=== PATIENT | female | born 1975 | race Caucasian/White ===

== ENCOUNTER 2018-03-21 06:19 | Day surgery (SDC) | payer OTHER ==
[~2018-03-21 06:19] MED LIST: CEFAZOLIN 2 GM/50 ML (PMX) 50 ML IVPB; SOD CHLORIDE 0.9% 1,000 ML IV
[2018-03-21 06:55] LABS: ADD MAN DIFF? NO
[2018-03-21 06:57] LABS: WHITE BLOOD COUNT 11.6 10^3/ul (4.8-10.8)
[2018-03-21 06:57] LABS: BASOPHIL # 0.1 10^3/ul (0.0-0.1); BASOPHILS % 0.4 % (0.0-2.0); EOSINOPHILS # 0.4 10^3/ul (0.0-0.5); EOSINOPHILS % 3.8 % (0.0-7.0); HEMATOCRIT 36.1 % (37.0-47.0); HEMOGLOBIN 11.6 g/dl (12.0-16.0); LYMPHOCYTES # 2.2 10^3/ul (0.8-2.9); LYMPHOCYTES % 19.1 % (15.0-51.0); MEAN CORPUSCULAR HEMOGLOBIN 24.1 pg (29.0-33.0); MEAN CORPUSCULAR HGB CONC 32.1 g/dl (32.0-37.0); MEAN CORPUSCULAR VOLUME 75.1 fl (82.0-101.0); MEAN PLATELET VOLUME 9.3 fl (7.4-10.4); MONOCYTES % 8.3 % (0.0-11.0); NEUTROPHIL # 7.9 10^3/ul (1.6-7.5); NEUTROPHILS % 67.9 % (39.0-77.0); PLATELET COUNT 355 10^3/UL (140-415); RED BLOOD COUNT 4.81 10^6/ul (4.20-5.40); RED CELL DISTRIBUTION WIDTH 16.1 % (11.5-14.5)
[2018-03-21] MEDS ORDERED: LIDOCAINE 2% (SDV) 5 ML INJ (07:00)
[2018-03-21 07:17] LABS: ALANINE AMINOTRANSFERASE 35 IU/L (13-69); ALBUMIN 4.5 g/dl (3.3-4.9); ALBUMIN/GLOBULIN RATIO 1.21; ALKALINE PHOSPHATASE 100 IU/L (42-121); ANION GAP 12 (8-16); ASPARTATE AMINO TRANSFERASE 28 IU/L (15-46); BILIRUBIN,INDIRECT 0.3 mg/dl (0-1.1); BILIRUBIN,TOTAL 0.3 mg/dl (0.2-1.3); BLOOD UREA NITROGEN 7 mg/dl (7-20); CARBON DIOXIDE 24 mmol/L (21-31); CHLORIDE 109 mmol/L (97-110); CREATININE 0.53 mg/dl (0.44-1.00); GLUCOSE 99 mg/dl (70-220); INR 0.97; POTASSIUM 3.9 mmol/L (3.5-5.1); SODIUM 141 mmol/L (135-144); TOTAL PROTEIN 8.2 g/dl (6.1-8.1)
[2018-03-21] MEDS ORDERED: POLYMYXIN/BACITRACIN 1L IRRIG (07:39)
[2018-03-21] MEDS ORDERED: PROPOFOL 100 ML (07:50)
[2018-03-21] MEDS ORDERED: ROCURONIUM 50 MG INJ ×2 (07:58)
[2018-03-21] MEDS ORDERED: DEXAMETHASONE 4 MG/ML 1 ML INJ (08:28)
[2018-03-21] MEDS ORDERED: ONDANSETRON 4 MG INJ (08:30)
[2018-03-21] MEDS: BUPIVACAINE 0.25% (MPF) 30 ML INJ (08:31)
[2018-03-21] MEDS: POLYMYXIN/BACITRACIN 1L IRRIG IRR ×2 (08:31)
[2018-03-21] MEDS ORDERED: SUGAMMADEX SODIUM 200 MG/2 ML VIAL IV (08:45)
[2018-03-21] MEDS ORDERED: CEFAZOLIN 1 GM INJ (08:51)
[2018-03-21] MEDS ORDERED: ACETAMINOPHEN 1000MG/100ML IV 100 ML (08:51)
[2018-03-21] MEDS ORDERED: hydrALAzine 20 MG INJ IV (09:00)
[2018-03-21] MEDS ORDERED: FENTAnyl 50 MCG/ML VIAL IV ×3 (09:00)
[2018-03-21] MEDS ORDERED: LABETALOL HCL 20MG INJ IV (09:00)
[2018-03-21] MEDS ORDERED: MEPERIDINE 25 MG INJ IV (09:00)
[2018-03-21] MEDS ORDERED: HYDROCODONE/APAP (5/325) TAB PO (09:00)
[2018-03-21] MEDS ORDERED: ALBUTEROL 0.083% (NEB) 2.5 MG/3 ML AMP HHN (09:00)
[2018-03-21] MEDS ORDERED: OXYCODONE/ACETAMINOPHEN (5/325) TAB PO (09:00)
[2018-03-21] MEDS ORDERED: ONDANSETRON 4 MG INJ IV (09:00)
[2018-03-21] MEDS ORDERED: HYDROmorphONE 1 MG/5 ML IV SYRINGE IV ×2 (09:00)
[2018-03-21] MEDS ORDERED: DIPHENHYDRAMINE 50 MG INJ IV (09:00)
[2018-03-21] MEDS ORDERED: EPHEDrine SULFATE 50 MG/5 ML SYG IV (09:00)
[2018-03-21] MEDS ORDERED: KETOROLAC 30 MG INJ IV (09:00)
[2018-03-21] MEDS ORDERED: METOCLOPRAMIDE 10 MG INJ IV (09:00)
[2018-03-21] MEDS: HYDROmorphONE 1 MG/5 ML IV SYRINGE IV (09:10)
[2018-03-21] MEDS: OXYCODONE/ACETAMINOPHEN (5/325) TAB PO (09:34)
== END 2018-03-21 10:30 | disposition home or self-care (01) ==
LOC: SDS 06:19
DX: K40.30 Unilateral inguinal hernia, with obstruction, without gangrene, not specified as recurrent (principal)
CPT/HCPCS: 49507; 80053; 84703; 85025; 85610; 85730

== ENCOUNTER 2018-08-14 08:26 | Observation (INO) | payer OTHER ==
[2018-08-14] MEDS: CEFAZOLIN 1 GM/50 ML (PMX) 50 ML IVPB (08:00)
[~2018-08-14 08:26] MED LIST changes: -CEFAZOLIN 2 GM/50 ML (PMX) 50 ML IVPB
[2018-08-14 12:51] LABS: ALANINE AMINOTRANSFERASE 45 IU/L (13-69); ALBUMIN 4.6 g/dl (3.3-4.9); ALBUMIN/GLOBULIN RATIO 1.27; ALKALINE PHOSPHATASE 82 IU/L (42-121); ANION GAP 11 (5-13); ASPARTATE AMINO TRANSFERASE 46 IU/L (15-46); BILIRUBIN,INDIRECT 0.6 mg/dl (0-1.1); BILIRUBIN,TOTAL 0.6 mg/dl (0.2-1.3); CALCIUM 9.3 mg/dl (8.4-10.2); CARBON DIOXIDE 25 mmol/L (21-31); CHLORIDE 108 mmol/L (97-110); CREATININE 0.44 mg/dl (0.44-1.00); Estimated GFR > 60 mL/min (>60); GLUCOSE 90 mg/dl (70-220); POTASSIUM 3.9 mmol/L (3.5-5.1); SODIUM 144 mmol/L (135-144); TOTAL PROTEIN 8.2 g/dl (6.1-8.1)
[2018-08-14 13:01] LABS: BLOOD UREA NITROGEN 3 mg/dl (7-20)
[2018-08-14] MEDS ORDERED: LIDOCAINE 2% (SDV) 5 ML INJ (13:41)
[2018-08-14] MEDS ORDERED: PROPOFOL 20 ML (13:41)
[2018-08-14] MEDS ORDERED: FENTAnyl 50 MCG/ML VIAL ×2 (13:41→14:37)
[2018-08-14] MEDS ORDERED: MIDAZOLAM 1 MG/ML 2 ML INJ (13:41)
[2018-08-14] MEDS ORDERED: PHENYLephrine (100 MCG/ML) 5ML SYG (13:57)
[2018-08-14] MEDS ORDERED: DEXAMETHASONE 4 MG/ML 1 ML INJ (13:58)
[2018-08-14] MEDS ORDERED: FAMOTIDINE 20 MG INJ (13:58)
[2018-08-14] MEDS ORDERED: ONDANSETRON 4 MG INJ (13:58)
[2018-08-14] MEDS: ISOSULFAN BLUE 1% 5 ML INJ SC (13:59)
[2018-08-14] MEDS ORDERED: PROCHLORPERAZINE 10 MG INJ IV (14:00)
[2018-08-14] MEDS ORDERED: MEPERIDINE 25 MG INJ IV (14:00)
[2018-08-14] MEDS ORDERED: DIPHENHYDRAMINE 50 MG INJ IV (14:00)
[2018-08-14] MEDS ORDERED: OXYCODONE/ACETAMINOPHEN (5/325) TAB PO (14:00)
[2018-08-14] MEDS ORDERED: FENTAnyl 50 MCG/ML VIAL IV ×3 (14:00)
[2018-08-14] MEDS ORDERED: CEFAZOLIN 1 GM INJ (14:00)
[2018-08-14] MEDS ORDERED: HYDROmorphONE 1 MG/5 ML IV SYRINGE IV ×2 (14:00)
[2018-08-14] MEDS ORDERED: EPHEDrine SULFATE 50 MG/5 ML SYG (14:30)
[2018-08-14] MEDS ORDERED: ACETAMINOPHEN 1000MG/100ML IV 100 ML IVPB (15:30)
[2018-08-14] MEDS: HYDROmorphONE 1 MG/5 ML IV SYRINGE IV (17:25)
[2018-08-14] MEDS: ONDANSETRON 4 MG INJ IV ×2 (17:25→21:33)
[2018-08-14] MEDS: D5W-0.45 NACL + KCL 20 MEQ 1,000 ML IV ×2 (21:32→23:15)
[2018-08-14] MEDS: morphine 2 MG INJ IV (21:44)
[2018-08-15] MEDS: ONDANSETRON 4 MG INJ IV (06:41)
[2018-08-15] MEDS: D5W-0.45 NACL + KCL 20 MEQ 1,000 ML IV (07:36)
== END 2018-08-15 15:37 | disposition home or self-care (01) ==
LOC: SDS 08:26 → PP2 15:55
DX: C50.411 Malignant neoplasm of upper-outer quadrant of right female breast (principal); Z17.0 Estrogen receptor positive status [ER+]
CPT/HCPCS: 19301; 80053; 84703; 88307; 88331; G0378